=== PATIENT | male | born 1960 | race Caucasian/White ===

== ENCOUNTER 2020-06-20 07:56 | Outpatient (REF) | payer OTHER, SELFPAY ==
[2020-06-20 09:06] LABS: Alanine Aminotransferase 20 U/L (0-40); Albumin Level 4.2 g/dL (3.5-5.0); Alkaline Phosphatase 71 U/L (39-117); Anion Gap 16 (12-20); Aspartate Amino Transferase 24 U/L (5-37); Bilirubin Total 0.5 mg/dL (0.0-1.0); Blood Urea Nitrogen 13 mg/dL (9-16); Calcium 8.8 mg/dL (8.4-10.2); Carbon Dioxide 24 mmol/L (22-29); Chloride 104 mmol/L (96-108); Cholesterol 182 mg/dL; Estimated Glomerular Filt Rate > 60; Glucose Fasting 131 mg/dL (60-99); HDL Cholesterol 54 mg/dL; LDL Cholesterol Calculated 95 mg/dl; Potassium 4.5 mmol/L (3.3-5.1); Sodium 139 mmol/L (135-145); Total Protein 7.9 g/dL (6.5-8.0); Triglycerides 167 mg/dL
[2020-06-20 10:30] LABS: Estimated Average Glucose 128 mg/dL; Hemoglobin A1c % 6.1 %
== END 2020-06-20 07:57 | disposition home or self-care (01) ==
LOC: HO.LAB 07:56
PROVIDERS: PCP Internal Medicine; Visit Provider Internal Medicine
DX: Z00.00 Encounter for general adult medical examination without abnormal findings (principal); R73.9 Hyperglycemia, unspecified; I10 Essential (primary) hypertension; E78.5 Hyperlipidemia, unspecified
CPT/HCPCS: 36415; 80053; 80061; 83036

== ENCOUNTER 2020-07-08 06:04 | Outpatient (REF) | payer OTHER, SELFPAY ==
[2020-07-08 11:43] LABS: Hematocrit 44.8 % (42-52); Hemoglobin 14.6 g/dl (14.0-18.0); Mean Corpuscular HGB Conc 32.6 g/dl (31.0-36.0); Mean Corpuscular Hemoglobin 30.5 pg (27.0-33.0); Mean Corpuscular Volume 93.5 fL (80-98); Mean Platelet Volume 11.7 fL (9.4-12.4); Platelet Count 207 X10*3/uL (160-400); Red Blood Count 4.79 X10*6/uL (4.60-5.80); Red Cell Distribution Width 12.7 % (11.0-16.0); White Blood Count 6.8 X10*3/uL (4.8-10.8)
[2020-07-08 12:05] LABS: Estimated Average Glucose 134 mg/dL; Hemoglobin A1c % 6.3 %
[2020-07-08 12:23] LABS: Creatinine Urine 148.81 mg/dL
[2020-07-08 12:33] LABS: Alanine Aminotransferase 32 U/L (0-40); Albumin Level 4.2 g/dL (3.5-5.0); Alkaline Phosphatase 71 U/L (39-117); Anion Gap 13 (12-20); Aspartate Amino Transferase 30 U/L (5-37); Bilirubin Total 0.7 mg/dL (0.0-1.0); Blood Urea Nitrogen 16 mg/dL (9-16); Carbon Dioxide 24 mmol/L (22-29); Chloride 104 mmol/L (96-108); Cholesterol 181 mg/dL; Estimated Glomerular Filt Rate > 60; Glucose Fasting 118 mg/dL (60-99); HDL Cholesterol 50 mg/dL; LDL Cholesterol Calculated 103 mg/dl; Potassium 4.2 mmol/L (3.3-5.1); Sodium 137 mmol/L (135-145); Total Protein 7.8 g/dL (6.5-8.0); Triglycerides 142 mg/dL
[2020-07-08 13:10] LABS: Folate 9.3 ng/mL (> or = 4.0); Vitamin B12 351 pg/mL (200-900)
== END 2020-07-08 06:05 | disposition home or self-care (01) ==
LOC: HO.HMGCLDS 06:04
PROVIDERS: PCP Internal Medicine; Visit Provider Internal Medicine
DX: E78.5 Hyperlipidemia, unspecified (principal); R73.9 Hyperglycemia, unspecified; I10 Essential (primary) hypertension; G62.9 Polyneuropathy, unspecified; M54.30 Sciatica, unspecified side; I73.9 Peripheral vascular disease, unspecified
CPT/HCPCS: 36415; 80053; 80061; 82043; 82607; 82746; 83036; 85027

== ENCOUNTER 2020-07-09 16:01 | Outpatient (REF) | payer OTHER, SELFPAY ==
--- NOTE | ~2020-07-09 | XR_ITS ---
EXAMINATION: LUMBAR SPINE AND BILATERAL HIPS. CLINICAL INFORMATION: Polyneuropathy. COMPARISON: None TECHNIQUE: 3 views lumbar spine and 2 views each. FINDINGS: LUMBAR SPINE: There is mild straightening of lumbar lordosis. The vertebral heights and alignment is normal. There is loss of disc it virtually every disc level with vacuum disc phenomena. There is moderate spondylosis throughout lumbar spine. No acute fracture or lytic process seen. The paravertebral soft tissues are normal. RIGHT HIP: The right hip joint space is maintained normal. No bony erosive changes, loose bodies or fracture seen. The soft tissues are normal. LEFT HIP: The left hip joint space is maintained normal. No bony erosive changes, loose bodies or acute fracture seen. The soft tissues are normal. XR/XR hip RT min 2V IMPRESSION: Degenerative disc changes with spondylosis throughout lumbar spine. No visible acute fracture or dislocation seen. Unremarkable bilateral hip exam
--- NOTE | ~2020-07-09 | XR_ITS ---
EXAMINATION: LUMBAR SPINE AND BILATERAL HIPS. CLINICAL INFORMATION: Polyneuropathy. COMPARISON: None TECHNIQUE: 3 views lumbar spine and 2 views each. FINDINGS: LUMBAR SPINE: There is mild straightening of lumbar lordosis. The vertebral heights and alignment is normal. There is loss of disc it virtually every disc level with vacuum disc phenomena. There is moderate spondylosis throughout lumbar spine. No acute fracture or lytic process seen. The paravertebral soft tissues are normal. RIGHT HIP: The right hip joint space is maintained normal. No bony erosive changes, loose bodies or fracture seen. The soft tissues are normal. LEFT HIP: The left hip joint space is maintained normal. No bony erosive changes, loose bodies or acute fracture seen. The soft tissues are normal. XR/XR hip LT min 2V IMPRESSION: Degenerative disc changes with spondylosis throughout lumbar spine. No visible acute fracture or dislocation seen. Unremarkable bilateral hip exam
--- NOTE | ~2020-07-09 | XR_ITS ---
EXAMINATION: LUMBAR SPINE AND BILATERAL HIPS. CLINICAL INFORMATION: Polyneuropathy. COMPARISON: None TECHNIQUE: 3 views lumbar spine and 2 views each. FINDINGS: LUMBAR SPINE: There is mild straightening of lumbar lordosis. The vertebral heights and alignment is normal. There is loss of disc it virtually every disc level with vacuum disc phenomena. There is moderate spondylosis throughout lumbar spine. No acute fracture or lytic process seen. The paravertebral soft tissues are normal. RIGHT HIP: The right hip joint space is maintained normal. No bony erosive changes, loose bodies or fracture seen. The soft tissues are normal. LEFT HIP: The left hip joint space is maintained normal. No bony erosive changes, loose bodies or acute fracture seen. The soft tissues are normal. XR/XR lumbar spine 2-3V IMPRESSION: Degenerative disc changes with spondylosis throughout lumbar spine. No visible acute fracture or dislocation seen. Unremarkable bilateral hip exam
== END 2020-07-09 16:02 | disposition home or self-care (01) ==
LOC: HO.HMGCX 16:01
PROVIDERS: PCP Internal Medicine; Visit Provider Internal Medicine
DX: G62.9 Polyneuropathy, unspecified (principal); I73.9 Peripheral vascular disease, unspecified; M54.30 Sciatica, unspecified side
CPT/HCPCS: 72100; 73502

== ENCOUNTER 2020-08-17 14:09 | Outpatient (REF) | payer OTHER, SELFPAY ==
--- NOTE | ~2020-08-17 | US_ITS ---
EXAMINATION: RIGHT LOWER EXTREMITY DUPLEX CLINICAL INFORMATION: Peripheral vascular disease. TECHNIQUE: Real-time ultrasound and Doppler techniques (integrating B-mode 2-D vascular images, Doppler spectral analysis and color flow Doppler imaging) were utilized to interrogate the right lower extremities. COMPARISON: None FINDINGS: RIGHT LEG: Common femoral artery: 160 cm/s, Triphasic Superficial femoral artery (proximal): 1:30 cm/s, Triphasic Superficial femoral artery (mid): 138 cm/s, Triphasic Superficial femoral artery (distal): 86.8 cm/s, Triphasic Popliteal artery: 73.5 cm/s, Triphasic Posterior tibial artery: 89.1 cm/s, Triphasic US/US arterial duplex LE RT IMPRESSION: No evidence of a right lower extremity hemodynamically significant stenosis.
== END 2020-08-17 14:10 | disposition home or self-care (01) ==
LOC: HO.US 14:09
PROVIDERS: Visit Provider Internal Medicine
DX: I73.9 Peripheral vascular disease, unspecified (principal)
CPT/HCPCS: 93926

== ENCOUNTER 2020-12-19 08:32 | Outpatient (REF) | payer OTHER, SELFPAY ==
[2020-12-19 09:42] LABS: Creatinine Urine 61.14 mg/dL; Microalbumin Urine < 5.0 mg/L
[2020-12-19 09:43] LABS: Alanine Aminotransferase 36 U/L (0-40); Albumin Level 4.4 g/dL (3.5-5.0); Alkaline Phosphatase 70 U/L (39-117); Anion Gap 12 (12-20); Aspartate Amino Transferase 37 U/L (5-37); Bilirubin Total 0.8 mg/dL (0.0-1.0); Blood Urea Nitrogen 13 mg/dL (9-16); Calcium 9.3 mg/dL (8.4-10.2); Carbon Dioxide 27 mmol/L (22-29); Chloride 104 mmol/L (96-108); Cholesterol 163 mg/dL; Estimated Glomerular Filt Rate > 60; Glucose Fasting 121 mg/dL (60-99); HDL Cholesterol 45 mg/dL; LDL Cholesterol Calculated 97 mg/dl; Sodium 138 mmol/L (135-145); Total Protein 7.9 g/dL (6.5-8.0); Triglycerides 105 mg/dL
[2020-12-19 09:44] LABS: Estimated Average Glucose 134 mg/dL; Hemoglobin A1c % 6.3 %
== END 2020-12-19 08:33 | disposition home or self-care (01) ==
LOC: HO.LAB 08:32
PROVIDERS: PCP Internal Medicine; Visit Provider Internal Medicine
DX: R73.9 Hyperglycemia, unspecified (principal); I10 Essential (primary) hypertension; E78.5 Hyperlipidemia, unspecified
CPT/HCPCS: 36415; 80053; 80061; 82043; 83036

== ENCOUNTER 2021-04-17 08:56 | Outpatient (REF) | payer OTHER, SELFPAY ==
[2021-04-17 09:52] LABS: Alanine Aminotransferase 29 U/L (0-40); Albumin Level 4.2 g/dL (3.5-5.0); Alkaline Phosphatase 68 U/L (39-117); Anion Gap 12 (12-20); Aspartate Amino Transferase 32 U/L (5-37); Bilirubin Total 0.8 mg/dL (0.0-1.0); Blood Urea Nitrogen 12 mg/dL (9-16); Calcium 9.3 mg/dL (8.4-10.2); Carbon Dioxide 28 mmol/L (22-29); Chloride 104 mmol/L (96-108); Cholesterol 160 mg/dL; Estimated Glomerular Filt Rate > 60; Glucose Fasting 126 mg/dL (60-99); HDL Cholesterol 46 mg/dL; LDL Cholesterol Calculated 95 mg/dl; Potassium 4.8 mmol/L (3.3-5.1); Sodium 139 mmol/L (135-145); Total Protein 7.7 g/dL (6.5-8.0); Triglycerides 96 mg/dL
[2021-04-17 10:12] LABS: Estimated Average Glucose 134 mg/dL; Hemoglobin A1c % 6.3 %
[2021-04-17 10:15] LABS: Creatinine Urine 146.41 mg/dL; Microalbum/Creatinine Ratio Ur 12.2 ug/mg cr
== END 2021-04-17 08:57 | disposition home or self-care (01) ==
LOC: HO.LAB 08:56
PROVIDERS: PCP Internal Medicine; Visit Provider Internal Medicine
DX: E78.5 Hyperlipidemia, unspecified (principal); I10 Essential (primary) hypertension; R73.9 Hyperglycemia, unspecified
CPT/HCPCS: 36415; 80053; 80061; 82043; 83036

== ENCOUNTER 2021-09-18 08:03 | Outpatient (REF) | payer OTHER, SELFPAY ==
[2021-09-18 09:26] LABS: Prostate Specific Antigen 1.24 ng/mL (<0.05-4.0)
== END 2021-09-18 08:04 | disposition home or self-care (01) ==
LOC: HO.LAB 08:03
PROVIDERS: PCP Internal Medicine; Visit Provider Urology
DX: Z12.5 Encounter for screening for malignant neoplasm of prostate (principal); N40.0 Benign prostatic hyperplasia without lower urinary tract symptoms
CPT/HCPCS: 36415; 84153

== ENCOUNTER 2021-12-25 08:01 | Outpatient (REF) | payer OTHER, SELFPAY ==
[2021-12-25 08:52] LABS: Estimated Average Glucose 137 mg/dL; Hemoglobin A1c % 6.4 %
[2021-12-25 09:14] LABS: Alanine Aminotransferase 43 U/L (0-40); Albumin Level 4.3 g/dL (3.5-5.0); Alkaline Phosphatase 61 U/L (39-117); Anion Gap 16 (12-20); Aspartate Amino Transferase 45 U/L (5-37); Bilirubin Total 0.6 mg/dL (0.0-1.0); Blood Urea Nitrogen 14 mg/dL (9-16); Calcium 8.7 mg/dL (8.4-10.2); Carbon Dioxide 25 mmol/L (22-29); Chloride 104 mmol/L (96-108); Cholesterol 173 mg/dL; Estimated Glomerular Filt Rate > 60; Glucose Fasting 125 mg/dL (60-99); HDL Cholesterol 52 mg/dL; LDL Cholesterol Calculated 102 mg/dl; Potassium 4.5 mmol/L (3.3-5.1); Sodium 140 mmol/L (135-145); Total Protein 7.7 g/dL (6.5-8.0); Triglycerides 96 mg/dL
[2021-12-25 09:38] LABS: Creatinine Urine 79.07 mg/dL; Microalbum/Creatinine Ratio Ur 6.3 ug/mg cr
== END 2021-12-25 08:02 | disposition home or self-care (01) ==
LOC: HO.LAB 08:01
PROVIDERS: PCP Internal Medicine; Visit Provider Internal Medicine
DX: E11.9 Type 2 diabetes mellitus without complications (principal); E78.5 Hyperlipidemia, unspecified; I10 Essential (primary) hypertension
CPT/HCPCS: 36415; 80053; 80061; 82043; 83036

== ENCOUNTER → 2022-01-10 07:55 | Outpatient (REF) | payer OTHER, SELFPAY ==
--- NOTE | 2022-01-10 08:00 | CA_ITS ---
Acquisition Time: 2022-01-10 08:17:52 Total Exercise Time: 00:05:43 Test Indications: CP, SOB Medications: SEE CHART Protocol: EUGENIO Max HR: 139 BPM 87% of Pred: 159 BPM Max BP: 190/076 mmHG Max Work Load: 7.0 METS Exercise stress test with exercise 5 min 43 sec of Eugenio protocol, achieving 86% MPHR, with moderate sob, no chest discomfort, without arrythmia, with normotensive response to exercise, without EKG changes meeting criteria for ischemia. In recovery his breathing normalized. Test reviewed with Dr Liu. Referred By: Nighat Parson Overread By: LINDA MAE
== END ==
LOC: HO.CARD 07:55
PROVIDERS: PCP Internal Medicine; Visit Provider Internal Medicine
DX: I20.9 Angina pectoris, unspecified (principal)
CPT/HCPCS: 93017

== ENCOUNTER 2022-09-29 08:16 | Outpatient (AMB) | payer OTHER, SELFPAY ==
[2022-09-29 08:34] VITALS: BP 158/80; PULSE 76; TEMP 36.8; O2SAT 94; BMI 38.1
--- NOTE | 2022-09-29 08:34 | MHC.OFFWIV ---
Intake Vital Signs 09/29/22 08:34 Height 6 ft 2 in Weight 296 lb 8 oz BMI 38.1 BP 158/80 H Blood Pressure Location Rt brachial Position Sitting Pulse 76 Pulse Source Pulse Oximeter Temp 98.2 F Temp Source Oral Pulse Oximetry (%) 94 Oxygen Delivery Method Room Air Intake Visit Reasons: EP, Bilateral ear pain Intake Note: Pt is here today for both ears blocked, states been discomfort for 2 wks. Patient Tobacco Use Status: Former Tobacco user Allergies No Known Allergies [No Known Allergies*] Allergy (Verified 09/29/22 08:34) Do you need a note to return to daycare/school/sports/work: No HPI HPI Comments History of Present Illness Details The patient presents to urgent care for evaluation of cerumen impaction bilaterally with the left being worse than right. Decreased hearing [facility] [place] Medical History Annual physical exam BPH (benign prostatic hyperplasia) Claudication of right lower extremity DJD (degenerative joint disease), lumbar DM type 2 (diabetes mellitus, type 2) HTN (hypertension) Hyperglycemia Hyperlipemia Microscopic hematuria Osteoarthritis Sciatica Surgical History H/O colonoscopy History of arthroscopic knee surgery Family History Father No problems noted. Mother No problems noted. Social History Housing: House Alcohol intake: current Alcohol intake frequency: a few times a month Patient Tobacco Use Status: Former Tobacco user Years Smoked: 38 yrs e-Cigarette/Vaping Use: Never Used Current occupational status: employed Cognitive needs: No Hearing needs: No Vision needs: Yes Review of Systems Const Denies headache(s) Eyes Denies change in vision, Denies dry eyes, Denies floaters, Denies irritation, Reports itchy eyes and Denies eye pain ENT Reports no additional complaints and Denies headache(s) Card Reports no additional complaints Musc Denies numbness Skin/Breast Denies skin pain, Denies skin swelling and Denies unusual bruising Neuro Denies headache(s), Denies focal weakness and Denies numbness Aller/Immun Reports itchy eyes Physical Exam Vital Signs: Last Vital Signs Temp 98.2 F 09/29/22 08:34 Pulse 76 09/29/22 08:34 BP 158/80 H 09/29/22 08:34 Pulse Ox 94 09/29/22 08:34 Oxygen Delivery Method Room Air 09/29/22 08:34 BMI result Body Mass Index 38.1 Const General: healthy appearing and no acute distress Orientation/consciousness: patient oriented x3 HEENT Other: Bilateral cerumen impaction Eyes Eyelids: Yes eyelids normal Conjunctivae: conjunctivae normal EOM: EOMs intact bilaterally Neuro General: patient oriented x3 Assessment & Plan Assessment & Plan (1) Impacted cerumen of both ears: Code(s): H61.23 - Impacted cerumen, bilateral Plan The patient presents for evaluation of decreased hearing and cerumen impaction. Hydrogen peroxide was instilled in the ear and the bilateral ear was subsequently irrigated with warm water. The impaction was removed well. Patient tolerated the procedure well. Hearing is improved. There is no infection noted. TMs intact and normal. The patient will follow up with her PCP or return as needed. Coding Level of Care Code Est Pt Level 3 (17982) Diagnoses Impacted cerumen of both ears H61.23
== END 2022-09-29 09:55 | disposition home or self-care (01) ==
PROVIDERS: PCP Internal Medicine; Visit Provider Emergency Medicine
DX: H61.23 Impacted cerumen, bilateral (principal)
CPT/HCPCS: 99213

== ENCOUNTER 2022-12-22 08:04 | Outpatient (REF) | payer OTHER, SELFPAY ==
[2022-12-22 09:41] LABS: Prostate Specific Antigen 1.09 ng/mL (<0.05-4.0)
== END 2022-12-22 08:05 | disposition home or self-care (01) ==
LOC: HO.LAB 08:04
PROVIDERS: PCP Internal Medicine; Visit Provider Urology
DX: Z12.5 Encounter for screening for malignant neoplasm of prostate (principal); N40.0 Benign prostatic hyperplasia without lower urinary tract symptoms
CPT/HCPCS: 36415; 84153

== ENCOUNTER 2023-03-24 12:56 | Outpatient (AMB) | payer OTHER, SELFPAY ==
--- NOTE | 2023-03-24 13:17 | A.OFFPC_ITS ---
Vital Signs 03/24/23 13:18 Height 6 ft 2 in Weight 288 lb BMI 37.0 BP 140/78 H Blood Pressure Location Lt brachial Position Sitting Pulse 85 Pulse Source Pulse Oximeter Pulse Oximetry (%) 96 Oxygen Delivery Method Room Air Intake Visit Reasons: Physical Exam Intake Note: Pt is here today for PE. Allergies No Known Allergies [No Known Allergies*] Allergy (Verified 03/24/23 13:22) Medication List - Last Reconciled 03/24/23 by Nighat Parson MD aspirin 81 mg PO DAILY irbesartan 300 mg PO DAILY metformin 850 mg PO BID metoprolol tartrate 50 mg PO DAILY rosuvastatin (Crestor) 20 mg PO DAILY simvastatin 40 mg PO BEDTIME Tobacco use date assessed: 03/24/23 Dental Screening Dental Screen Date: 03/24/23 Did you have a dental visit in the last 12 months?: Yes Did you have a dental problem in the last 6 months where you did not have access to dental care?: No Was dental information given to patient?: Patient has dentist HPI Physical Exam HPI Details Patient presents for physical. [facility]LY [facility] Medical History (Updated 03/24/23 @ 15:17 by Nighat Parson MD) DM type 2 (diabetes mellitus, type 2) Sciatica Annual physical exam Hyperlipemia Hyperglycemia DJD (degenerative joint disease), lumbar Microscopic hematuria BPH (benign prostatic hyperplasia) Osteoarthritis HTN (hypertension) Surgical History H/O colonoscopy History of arthroscopic knee surgery Family History Father No problems noted. Mother No problems noted. Social History Housing: House Alcohol intake: current Alcohol intake frequency: a few times a month Patient Tobacco Use Status: Former Tobacco user Years Smoked: 38 yrs e-Cigarette/Vaping Use: Never Used Current occupational status: employed Cognitive needs: No Hearing needs: No Vision needs: Yes Questionnaire PHQ-9 Over the last 2 weeks, how often have you been bothered by any of the following problems? 1. Little interest or pleasure in doing things: not at all 2. Feeling down, depressed, or hopeless: not at all 3. Trouble falling or staying asleep, or sleeping too much: not at all 4. Feeling tired or having little energy: not at all 5. Poor appetite or overeating: not at all 6. Feeling bad about yourself - or that you are a failure or have let yourself or your family down: not at all 7. Trouble concentrating on things, such as reading the newspaper or watching television: not at all 8. Moving or speaking so slowly that other people could have noticed. Or the opposite - being so fidgety or restless that you have been moving around a lot more than usual: not at all 9. Thoughts that you would be better off or of hurting yourself in some way: not at all Total score: 0 Depression Screening Interpretation: Negative Depression Screening Done: Yes Source: Developed by Drs. Cristino Paz, Camille Vasquez, Andrade Hicks and colleagues, with an educational flores from [employer]. Thrive Questionnaire Date Thrive assessed: 03/24/23 I am a: Patient What is your living situation today?: I have a steady place to live Within the past 12 months, did the food you bought not last and you didn't have the money to get more?: Never true Within the past 12 months, did you worry whether your food would run out before you got money to buy more?: Never true Do you have trouble paying for medicines?: No Do you have trouble getting transportation to medical appointments?: No Do you have trouble paying your heating and electricity bill?: No Do you have trouble taking care of your child, family member or friend?: No Do you have trouble with day-to-day activities such as bathing, preparing meals, shopping, managing finances, etc.?: No Are you currently unemployed and looking for a job?: No Are you interested in more education?: No Please select the resources that you would like help with: None Currently or been in a relationship where the following occur: no concerns reported THRIVE Score: 0 AUDIT C Alcohol Use Questionnaire (AUDIT-C) 1. How often do you have a drink containing alcohol?: Monthly or less 2. How many drinks containing alcohol do you have on a typical day when you are drinking?: 1 or 2 3. How often do you have six or more drinks on one occasion?: Never Total Score: 1 LONG-7 AMB Questionnaire LONG-7 Date LONG - 7 assessed: 03/24/23 Feeling nervous, anxious, or on edge: 0 = Not at all Not being able to stop or control worryin = Not at all Worrying too much about different things: 0 = Not at all Trouble relaxin = Not at all Being so restless that it is hard to sit still: 0 = Not at all Becoming easily annoyed or irritable: 0 = Not at all Feeling afraid as if something awful might happen: 0 = Not at all Total LONG-7 score (0-4 normal; 5-9 mild; 10-14 moderate; 15-21 severe): 0 Source: Developed by Drs. Cristino Paz, Camille Vasquez, Andrade Hicks and colleagues, with an educational flores from [employer]. Review of Systems Const All systems reviewed & are unremarkable except as noted in HPI and below Reports no additional complaints Eyes Reports no additional complaints ENT Reports no additional complaints Card Reports no additional complaints Resp Reports no additional complaints GI Reports no additional complaints Physical exam (Primary Care) Vital Signs: Last Vital Signs Pulse 85 03/24/23 13:18 BP 140/78 H 03/24/23 13:18 Pulse Ox 96 03/24/23 13:18 Oxygen Delivery Method Room Air 03/24/23 13:18 BMI result Body Mass Index 37.0 Tobacco/Smoking Status: Tobacco use Status Tobacco use date assessed 03/24/23 03/24/23 13:27 Patient Tobacco Use Status Former Tobacco user 03/24/23 13:27 e-Cigarette/Vaping Use Never Used 03/24/23 13:27 PHQ-9: PHQ-9 Score PHQ-9: Total score 0 03/24/23 13:27 Depression Screening Interpretation: Negative Thrive Assessment: Date of Thrive Assessment Date Thrive assessed 03/24/23 03/24/23 13:27 Currently or been in a relationship where the following occur: no concerns rep orted Const General: no acute distress HENMT Head: Yes normal to inspection Ears: hearing grossly normal bilaterally Mouth: Normal oral and palatal mucosa present Eyes General: appearance normal, both eyes and all related structures Neck Neck: Yes no lymphadenopathy and Yes supple Resp Effort & Inspection: normal respiratory effort Auscultation: clear to auscultation bilaterally Cardio Rhythm: regular rhythm Heart sounds: S1 normal heart sound present and S2 normal heart sound present GI Inspection: Yes normal to inspection Palpation (GI): Soft to palpation Percussion: Yes normal to percussion Auscultation: normal bowel sounds Assessment and Plan Assessment & Plan (1) DM type 2 (diabetes mellitus, type 2): Code(s): E11.9 - Type 2 diabetes mellitus without complications Plan: ADA diet increase regular exercise weight loss discussed with the patient he will return for fasting blood work and follow-up in 3 months with a fasting labs before (2) HTN (hypertension): Code(s): I10 - Essential (primary) hypertension Plan: Continue irbesartan and metoprolol (3) Hyperlipemia: Code(s): E78.5 - Hyperlipidemia, unspecified Plan: Continue crestor (4) Annual physical exam: Code(s): Z00.00 - Encounter for general adult medical examination without abnormal findin gs Plan: Well-balanced diet regular physical activity weight loss discussed with the patient (5) H/O colonoscopy: Comment: 11/2016 Code(s): Z98.890 - Other specified postprocedural states Orders: Orders Complete Blood Count Auto Diff Today E11.9 - Type 2 diabetes mellitus without complications, E78.5 - Hyperlipidemia, unspecified, I10 - Essential (primary) hypertension Hemoglobin A1c Today E11.9 - Type 2 diabetes mellitus without complications, E78.5 - Hyperlipidemia, unspecified, I10 - Essential (primary) hypertension Lipid Panel Today E11.9 - Type 2 diabetes mellitus without complications, E78.5 - Hyperlipidemia, unspecified, I10 - Essential (primary) hypertension Comprehensive [place]. Panel Fast Today E11.9 - Type 2 diabetes mellitus without complications, E78.5 - Hyperlipidemia, unspecified, I10 - Essential (primary) hypertension Microalbumin, Random (w Creat) Today E11.9 - Type 2 diabetes mellitus without complications, E78.5 - Hyperlipidemia, unspecified, I10 - Essential (primary) hypertension Medications: Discontinued simvastatin Discontinued Reason: Doctor's Order 40 mg PO BEDTIME 90 tabs 3RF Coding Level of Care Code Est Pt Prev Care 40-64y(26753) Diagnoses DM type 2 (diabetes mellitus, type 2) E11.9 HTN (hypertension) I10 Hyperlipemia E78.5 Annual physical exam Z00.00 H/O colonoscopy Z98.890
[2023-03-24 13:18] VITALS: BP 140/78; PULSE 85; O2SAT 96; BMI 37.0
== END 2023-03-24 15:18 | disposition home or self-care (01) ==
PROVIDERS: PCP Internal Medicine; Visit Provider Internal Medicine
DX: E11.9 Type 2 diabetes mellitus without complications (principal); I10 Essential (primary) hypertension; E78.5 Hyperlipidemia, unspecified; Z00.00 Encounter for general adult medical examination without abnormal findings; Z98.890 Other specified postprocedural states
CPT/HCPCS: 99396

== ENCOUNTER 2023-04-01 08:41 | Outpatient (REF) | payer OTHER, SELFPAY ==
[2023-04-01 11:00] LABS: MANUAL DIFF FLAG NO
[2023-04-01 11:03] LABS: Basophils Percent Auto 0.6 % (0-2); Eosinophils Absolute Auto 0.3 X10*3/uL (0.0-0.4); Eosinophils Percent Auto 5.1 % (0-4); Hematocrit 44.9 % (42.0-52.0); Hemoglobin 15.2 g/dl (14.0-18.0); Imm Gran Abs Auto 0.02 X10*3/uL (0.00-0.03); Imm Gran Pct Auto 0.3 % (0.0-0.4); Lymphocytes Absolute Auto 2.2 X10*3/uL (1.2-4.9); Lymphocytes Percent Auto 35.3 % (20-40); Mean Corpuscular HGB Conc 33.9 g/dl (31.0-36.0); Mean Corpuscular Hemoglobin 30.1 pg (27.0-33.0); Mean Corpuscular Volume 88.9 fL (80.0-98.0); Mean Platelet Volume 11.3 fL (9.4-12.4); Monocytes Absolute Auto 0.5 X10*3/uL (0.1-1.2); Monocytes Percent Auto 7.9 % (2-11); Neutrophils Absolute Auto 3.2 x10*3/uL (2.0-8.3); Neutrophils Percent Auto 50.8 % (45-73); Platelet Count 172 X10*3/uL (160-400); Red Blood Count 5.05 X10*6/uL (4.60-5.80); Red Cell Distribution Width 12.3 % (11.0-16.0); White Blood Count 6.3 X10*3/uL (4.8-10.8)
[2023-04-01 11:09] LABS: Estimated Average Glucose 137 mg/dL; Hemoglobin A1c % 6.4 % (<6.0)
[2023-04-01 11:24] LABS: Alanine Aminotransferase 33 U/L (0-40); Albumin Level 4.2 g/dL (3.5-5.0); Alkaline Phosphatase 58 U/L (39-117); Anion Gap 12 (12-20); Aspartate Amino Transferase 36 U/L (5-37); Bilirubin Total 0.6 mg/dL (0.0-1.0); Blood Urea Nitrogen 11 mg/dL (9-16); Calcium 9.4 mg/dL (8.4-10.2); Carbon Dioxide 26 mmol/L (22-29); Chloride 103 mmol/L (96-108); Cholesterol 115 mg/dL (<200); Estimated Glomerular Filt Rate > 60; Glucose Fasting 129 mg/dL (60-99); HDL Cholesterol 44 mg/dL (>40); LDL Cholesterol Calculated 53 mg/dL (<100); Potassium 3.9 mmol/L (3.3-5.1); Sodium 137 mmol/L (135-145); Total Protein 7.9 g/dL (6.5-8.0); Triglycerides 93 mg/dL (<150)
[2023-04-01 11:57] LABS: Creatinine Urine 88.31 mg/dL
== END 2023-04-01 08:42 | disposition home or self-care (01) ==
LOC: HO.HMGCLDS 08:41
PROVIDERS: PCP Internal Medicine; Visit Provider Internal Medicine
DX: E11.9 Type 2 diabetes mellitus without complications (principal); E78.5 Hyperlipidemia, unspecified; I10 Essential (primary) hypertension
CPT/HCPCS: 36415; 80053; 80061; 82043; 82570; 83036; 85025

== ENCOUNTER 2023-06-24 09:03 | Outpatient (REF) | payer OTHER, SELFPAY ==
[2023-06-24 11:33] LABS: Estimated Average Glucose 137 mg/dL; Hemoglobin A1c % 6.4 % (<6.0)
[2023-06-24 11:57] LABS: Alanine Aminotransferase 29 U/L (0-40); Albumin Level 4.2 g/dL (3.5-5.0); Alkaline Phosphatase 54 U/L (39-117); Anion Gap 14 (12-20); Aspartate Amino Transferase 36 U/L (5-37); Bilirubin Total 0.3 mg/dL (0.0-1.0); Blood Urea Nitrogen 11 mg/dL (9-16); Calcium 9.6 mg/dL (8.4-10.2); Carbon Dioxide 27 mmol/L (22-29); Chloride 105 mmol/L (96-108); Cholesterol 114 mg/dL (<200); Estimated Glomerular Filt Rate > 60; Glucose Fasting 111 mg/dL (60-99); HDL Cholesterol 42 mg/dL (>40); LDL Cholesterol Calculated 55 mg/dL (<100); Potassium 4.9 mmol/L (3.3-5.1); Sodium 141 mmol/L (135-145); Total Protein 7.9 g/dL (6.5-8.0); Triglycerides 89 mg/dL (<150)
== END 2023-06-24 09:04 | disposition home or self-care (01) ==
LOC: HO.HMGCLDS 09:03
PROVIDERS: PCP Internal Medicine; Visit Provider Internal Medicine
DX: E11.9 Type 2 diabetes mellitus without complications (principal); E78.5 Hyperlipidemia, unspecified; I10 Essential (primary) hypertension
CPT/HCPCS: 36415; 80053; 80061; 83036

== ENCOUNTER 2023-06-26 13:59 | Outpatient (AMB) | payer OTHER, SELFPAY ==
[2023-06-26 14:23] VITALS: BP 124/68; PULSE 76; O2SAT 95; BMI 35.9
--- NOTE | 2023-06-26 14:23 | A.OFFPC_ITS ---
Vital Signs 06/26/23 14:23 Height 6 ft 2 in Weight 280 lb BMI 35.9 BP 124/68 Blood Pressure Location Rt brachial Position Sitting Pulse 76 Pulse Source Pulse Oximeter Pulse Oximetry (%) 95 Oxygen Delivery Method Room Air Intake Visit Reasons: 3 Month follow up Intake Note: Pt is here today for 3 months follow up visit on labs. Allergies No Known Allergies [No Known Allergies*] Allergy (Verified 06/26/23 14:29) Medication List - Last Reconciled 06/26/23 by Nighat Parson MD aspirin 81 mg PO DAILY irbesartan 300 mg PO DAILY metformin 850 mg PO BID metoprolol tartrate 50 mg PO DAILY rosuvastatin (Crestor) 20 mg PO DAILY Tobacco use date assessed: 06/26/23 Dental Screening Dental Screen Date: 03/24/23 HPI 3 Month follow up HPI Details Patient presents for the follow-up of hypertension type 2 diabetes hyperlipidemia. He had an episode of pain and tingling sensation in the left 2nd and 3rd finger last month but resolved after NSAIDs for 1 week. 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 [facility]LY [facility] Medical History DM type 2 (diabetes mellitus, type 2) Sciatica Annual physical exam Hyperlipemia Hyperglycemia DJD (degenerative joint disease), lumbar Microscopic hematuria BPH (benign prostatic hyperplasia) Osteoarthritis HTN (hypertension) Surgical History H/O colonoscopy History of arthroscopic knee surgery Family History Father No problems noted. Mother No problems noted. Social History Housing: House Alcohol intake: current Alcohol intake frequency: a few times a month Patient Tobacco Use Status: Former Tobacco user Years Smoked: 38 yrs e-Cigarette/Vaping Use: Never Used service: No Current occupational status: employed Cognitive needs: No Hearing needs: No Vision needs: Yes Questionnaire Thrive Questionnaire Date Thrive assessed: 03/24/23 LONG-7 AMB Questionnaire LONG-7 Date LONG - 7 assessed: 03/24/23 Source: Developed by Drs. Cristino Paz, Camille B.W. Andrade Vasquez and colleagues, with an educational flores from [employer]. Review of Systems Const All systems reviewed & are unremarkable except as noted in HPI and below ENT Reports no additional complaints Card Reports no additional complaints Resp Reports no additional complaints GI Reports no additional complaints Reports no additional complaints Physical exam (Primary Care) Vital Signs: Last Vital Signs Pulse 76 06/26/23 14:23 BP 124/68 06/26/23 14:23 Pulse Ox 95 06/26/23 14:23 Oxygen Delivery Method Room Air 06/26/23 14:23 BMI result Body Mass Index 35.9 Tobacco/Smoking Status: Tobacco use Status Tobacco use date assessed 06/26/23 06/26/23 14:29 Patient Tobacco Use Status Former Tobacco user 06/26/23 14:27 e-Cigarette/Vaping Use Never Used 06/26/23 14:27 Thrive Assessment: Date of Thrive Assessment Date Thrive assessed 03/24/23 06/26/23 14:27 HENMT Ears: hearing grossly normal bilaterally Chest Chest palpation & inspection: normal inspection of the chest Resp Effort & Inspection: normal respiratory effort Auscultation: clear to auscultation bilaterally Cardio Rhythm: regular rhythm Heart sounds: S1 normal heart sound present and S2 normal heart sound present GI Inspection: Yes normal to inspection Palpation (GI): Soft to palpation Percussion: Yes normal to percussion Assessment and Plan Assessment & Plan (1) DM type 2 (diabetes mellitus, type 2): Code(s): E11.9 - Type 2 diabetes mellitus without complications Plan: A1c is 6.4, ADA diet increase exercise weight loss discussed with the patient continue metformin follow-up in 4 months (2) HTN (hypertension): Code(s): I10 - Essential (primary) hypertension Plan: Continue current medications (3) Hyperlipemia: Code(s): E78.5 - Hyperlipidemia, unspecified Plan: Continue statin Orders: Orders Comprehensive [place]. Panel Fast 4 Months E11.9 - Type 2 diabetes mellitus without complications, E78.5 - Hyperlipidemia, unspecified, I10 - Essential (primary) hypertension Hemoglobin A1c 4 Months E11.9 - Type 2 diabetes mellitus without complications, E78.5 - Hyperlipidemia, unspecified, I10 - Essential (primary) hypertension Complete Blood Count Auto Diff 4 Months E11.9 - Type 2 diabetes mellitus without complications, E78.5 - Hyperlipidemia, unspecified, I10 - Essential (primary) hypertension Coding Level of Care Code Est Pt Level 4 (96649) Diagnoses DM type 2 (diabetes mellitus, type 2) E11.9 HTN (hypertension) I10 Hyperlipemia E78.5
== END 2023-06-26 14:45 | disposition home or self-care (01) ==
PROVIDERS: PCP Internal Medicine; Visit Provider Internal Medicine
DX: E11.9 Type 2 diabetes mellitus without complications (principal); I10 Essential (primary) hypertension; E78.5 Hyperlipidemia, unspecified
CPT/HCPCS: 99214

== ENCOUNTER 2023-11-18 09:42 | Outpatient (REF) | payer OTHER, SELFPAY ==
[2023-11-18 09:55] LABS: MANUAL DIFF FLAG NO
[2023-11-18 10:14] LABS: Basophils Absolute Auto 0.1 X10*3/uL (0.0-0.2); Basophils Percent Auto 0.6 % (0-2); Eosinophils Absolute Auto 0.3 X10*3/uL (0.0-0.4); Eosinophils Percent Auto 4.4 % (0-4); Hematocrit 43.4 % (42.0-52.0); Imm Gran Abs Auto 0.01 X10*3/uL (0.00-0.03); Imm Gran Pct Auto 0.1 % (0.0-0.4); Lymphocytes Absolute Auto 2.5 X10*3/uL (1.2-4.9); Lymphocytes Percent Auto 32.8 % (20-40); Mean Corpuscular HGB Conc 34.6 g/dl (31.0-36.0); Mean Corpuscular Volume 89.7 fL (80.0-98.0); Mean Platelet Volume 10.7 fL (9.4-12.4); Monocytes Absolute Auto 0.6 X10*3/uL (0.1-1.2); Monocytes Percent Auto 8.3 % (2-11); Neutrophils Absolute Auto 4.2 x10*3/uL (2.0-8.3); Neutrophils Percent Auto 53.8 % (45-73); Platelet Count 176 X10*3/uL (160-400); Red Blood Count 4.84 X10*6/uL (4.60-5.80); Red Cell Distribution Width 12.2 % (11.0-16.0); White Blood Count 7.7 X10*3/uL (4.8-10.8)
[2023-11-18 10:21] LABS: Estimated Average Glucose 134 mg/dL; Hemoglobin A1c % 6.3 % (<6.0)
[2023-11-18 10:34] LABS: Alanine Aminotransferase 17 U/L (0-40); Albumin Level 4.4 g/dL (3.5-5.0); Alkaline Phosphatase 53 U/L (39-117); Anion Gap 11 (12-20); Aspartate Amino Transferase 23 U/L (5-37); Bilirubin Total 0.7 mg/dL (0.0-1.0); Blood Urea Nitrogen 13 mg/dL (9-16); Calcium 9.5 mg/dL (8.4-10.2); Carbon Dioxide 25 mmol/L (22-29); Chloride 106 mmol/L (96-108); Cholesterol 139 mg/dL (<200); Estimated Glomerular Filt Rate > 60; Glucose Fasting 121 mg/dL (60-99); HDL Cholesterol 52 mg/dL (>40); LDL Cholesterol Calculated 68 mg/dL (<100); Potassium 4.1 mmol/L (3.3-5.1); Sodium 138 mmol/L (135-145); Total Protein 7.9 g/dL (6.5-8.0); Triglycerides 99 mg/dL (<150)
[2023-11-18 10:42] LABS: Creatinine Urine 108.83 mg/dL; Microalbum/Creatinine Ratio Ur 7.3 ug/mg cr (<30)
[2023-11-18 10:49] LABS: PSA,Total (Free>4and<10) 1.26 ng/mL (0.00-4.00)
== END 2023-11-18 09:43 | disposition home or self-care (01) ==
LOC: HO.LAB 09:42
PROVIDERS: PCP Internal Medicine; Visit Provider Internal Medicine
DX: Z00.00 Encounter for general adult medical examination without abnormal findings (principal); E78.5 Hyperlipidemia, unspecified; I10 Essential (primary) hypertension; E11.9 Type 2 diabetes mellitus without complications; Z12.5 Encounter for screening for malignant neoplasm of prostate
CPT/HCPCS: 36415; 80053; 80061; 82043; 82570; 83036; 84153; 85025

== ENCOUNTER 2023-11-24 12:23 | Outpatient (AMB) | payer OTHER, SELFPAY ==
--- NOTE | 2023-11-24 12:27 | A.OFFPC_ITS ---
Vital Signs 11/24/23 12:31 Height 6 ft 2 in Weight 287 lb BMI 36.8 BP 148/70 H Blood Pressure Location Lt brachial Position Sitting Pulse 75 Pulse Source Pulse Oximeter Pulse Oximetry (%) 97 Oxygen Delivery Method Room Air Intake Visit Reasons: 4 month follow up / medication Intake Note: Pt is here today for his 4mo. f/u/ medication Allergies No Known Allergies [No Known Allergies*] Allergy (Verified 11/24/23 12:28) Medication List - Last Reconciled 11/24/23 by Nighat Parson MD aspirin 81 mg PO DAILY irbesartan 300 mg PO DAILY metformin 850 mg PO BID metoprolol tartrate 50 mg PO DAILY rosuvastatin (Crestor) 20 mg PO DAILY Tobacco use date assessed: 11/24/23 Dental Screening Dental Screen Date: 11/24/23 Did you have a dental visit in the last 12 months?: No Did you have a dental problem in the last 6 months where you did not have access to dental care?: No Was dental information given to patient?: Patient has dentist HPI 4 month follow up / medication HPI Details Patient presents for the follow-up on hypertension hyperlipidemia type 2 diabetes. [facility] Medical History DM type 2 (diabetes mellitus, type 2) Sciatica Annual physical exam Hyperlipemia Hyperglycemia DJD (degenerative joint disease), lumbar Microscopic hematuria BPH (benign prostatic hyperplasia) Osteoarthritis HTN (hypertension) Surgical History H/O colonoscopy History of arthroscopic knee surgery Family History Father No problems noted. Mother No problems noted. Social History Housing: House Alcohol intake: current Alcohol intake frequency: a few times a month Patient Tobacco Use Status: Former Tobacco user Years Smoked: 38 yrs e-Cigarette/Vaping Use: Never Used service: No Current occupational status: employed Cognitive needs: No Hearing needs: No Vision needs: Yes Questionnaire PHQ-9 Over the last 2 weeks, how often have you been bothered by any of the following problems? 1. Little interest or pleasure in doing things: not at all 2. Feeling down, depressed, or hopeless: not at all 3. Trouble falling or staying asleep, or sleeping too much: not at all 4. Feeling tired or having little energy: not at all 5. Poor appetite or overeating: not at all 6. Feeling bad about yourself - or that you are a failure or have let yourself or your family down: not at all 7. Trouble concentrating on things, such as reading the newspaper or watching television: not at all 8. Moving or speaking so slowly that other people could have noticed. Or the opposite - being so fidgety or restless that you have been moving around a lot more than usual: not at all 9. Thoughts that you would be better off or of hurting yourself in some way: not at all Total score: 0 Depression Screening Interpretation: Negative Depression Screening Done: Yes 51881 - PHQ-9 Billing: Yes Source: Developed by Drs. Cristino Paz, Camille Vasquez, Andrade Hicks and colleagues, with an educational flores from [employer]. Thrive Questionnaire Date Thrive assessed: 03/24/23 LONG-7 AMB Questionnaire LONG-7 Date LONG - 7 assessed: 03/24/23 Source: Developed by Drs. Cristino Paz, Camille Vasquez, Andrade Hicks and colleagues, with an educational flores from [employer]. Review of Systems Const All systems reviewed & are unremarkable except as noted in HPI and below ENT Reports no additional complaints Card Reports no additional complaints Resp Reports no additional complaints GI Reports no additional complaints Reports no additional complaints Physical exam (Primary Care) Vital Signs: Last Vital Signs Pulse 75 11/24/23 12:31 BP 148/70 H 11/24/23 12:31 Pulse Ox 97 11/24/23 12:31 Oxygen Delivery Method Room Air 11/24/23 12:31 BMI result Body Mass Index 36.8 Tobacco/Smoking Status: Tobacco use Status Tobacco use date assessed 11/24/23 11/24/23 12:28 Patient Tobacco Use Status Former Tobacco user 11/24/23 12:28 e-Cigarette/Vaping Use Never Used 11/24/23 12:28 PHQ-9: PHQ-9 Score PHQ-9: Total score 0 11/24/23 13:22 Depression Screening Interpretation: Negative Thrive Assessment: Date of Thrive Assessment Date Thrive assessed 03/24/23 11/24/23 12:28 Const General: no acute distress HENMT Ears: hearing grossly normal bilaterally Neck Neck: Yes supple Resp Effort & Inspection: normal respiratory effort Auscultation: clear to auscultation bilaterally Cardio Rhythm: regular rhythm Heart sounds: S1 normal heart sound present and S2 normal heart sound present GI Inspection: Yes normal to inspection Palpation (GI): Soft to palpation Percussion: Yes normal to percussion Auscultation: normal bowel sounds Coding Level of Care Code Est Pt Level 4 (07715) Diagnoses DM type 2 (diabetes mellitus, type 2) E11.9 HTN (hypertension) I10 Hyperlipemia E78.5 Assessment & Plan Assessment & Plan (1) DM type 2 (diabetes mellitus, type 2): Comment: Not interested in trying GLP 1 agonist Code(s): E11.9 - Type 2 diabetes mellitus without complications Category: Medical Plan: A1c is 6.3. Continue metformin ADA diet increase exercise and weight loss. Patient is not interested in trying GLP 1 agonist (2) HTN (hypertension): Code(s): I10 - Essential (primary) hypertension Category: Medical Plan: Continue current medications (3) Hyperlipemia: Code(s): E78.5 - Hyperlipidemia, unspecified Category: Medical Plan: Continue statin Orders: Orders Hemoglobin A1c 4 Months E11.9 - Type 2 diabetes mellitus without complications, E78.5 - Hyperlipidemia, unspecified, I10 - Essential (primary) hypertension Comprehensive [place]. Panel Fast 4 Months E11.9 - Type 2 diabetes mellitus without complications, E78.5 - Hyperlipidemia, unspecified, I10 - Essential (primary) hypertension Lipid Panel 4 Months E11.9 - Type 2 diabetes mellitus without complications, E78.5 - Hyperlipidemia, unspecified, I10 - Essential (primary) hypertension Microalbumin, Random (w Creat) 4 Months E11.9 - Type 2 diabetes mellitus without complications, E78.5 - Hyperlipidemia, unspecified, I10 - Essential (primary) hypertension
[2023-11-24 12:31] VITALS: BP 148/70; PULSE 75; O2SAT 97; BMI 36.8
== END 2023-11-24 13:57 | disposition home or self-care (01) ==
PROVIDERS: PCP Internal Medicine; Visit Provider Internal Medicine
DX: E11.9 Type 2 diabetes mellitus without complications (principal); I10 Essential (primary) hypertension; E78.5 Hyperlipidemia, unspecified

== ENCOUNTER → 2023-11-24 12:23 | Outpatient (BNVA) | payer OTHER, SELFPAY | PROVIDERS: PCP Internal Medicine; Visit Provider Internal Medicine ==

== ENCOUNTER 2023-12-26 06:05 | Outpatient (REF) | payer OTHER, SELFPAY ==
[2023-12-26 08:34] LABS: Prostate Specific Antigen 1.47 ng/mL (<0.05-4.0)
== END 2023-12-26 06:06 | disposition home or self-care (01) ==
LOC: HO.LAB 06:05
PROVIDERS: PCP Internal Medicine; Visit Provider Urology
DX: N40.0 Benign prostatic hyperplasia without lower urinary tract symptoms (principal); Z12.5 Encounter for screening for malignant neoplasm of prostate
CPT/HCPCS: 36415; 84153

== ENCOUNTER 2024-04-13 10:05 | Outpatient (REF) | payer OTHER, SELFPAY ==
[2024-04-13 11:21] LABS: Estimated Average Glucose 137 mg/dL; Hemoglobin A1C 168.9112 umol/L; Hemoglobin A1c % 6.4 % (<6.0); Total Hemoglobin (HGBA1C) 3643.2753 umol/L
[2024-04-13 11:45] LABS: Creatinine Urine 183.91 mg/dL
[2024-04-13 12:02] LABS: Alanine Aminotransferase 19 U/L (0-40); Albumin Level 4.4 g/dL (3.5-5.0); Alkaline Phosphatase 57 U/L (39-117); Anion Gap 13 (12-20); Aspartate Amino Transferase 32 U/L (5-37); Bilirubin Total 0.4 mg/dL (0.0-1.0); Blood Urea Nitrogen 13 mg/dL (9-16); Calcium 9.4 mg/dL (8.4-10.2); Carbon Dioxide 27 mmol/L (22-29); Chloride 107 mmol/L (96-108); Cholesterol 133 mg/dL (<200); Estimated Glomerular Filt Rate > 60; Glucose Fasting 116 mg/dL (60-99); HDL Cholesterol 55 mg/dL (>40); LDL Cholesterol Calculated 61 mg/dL (<100); Potassium 4.3 mmol/L (3.3-5.1); Sodium 143 mmol/L (135-145); Total Protein 8.4 g/dL (6.5-8.0); Triglycerides 87 mg/dL (<150)
== END 2024-04-13 10:06 | disposition home or self-care (01) ==
LOC: HO.LAB 10:05
PROVIDERS: PCP Internal Medicine; Visit Provider Internal Medicine
DX: I10 Essential (primary) hypertension (principal); E78.5 Hyperlipidemia, unspecified; E11.9 Type 2 diabetes mellitus without complications
CPT/HCPCS: 36415; 80053; 80061; 82043; 82570; 83036

== ENCOUNTER 2024-04-17 12:37 | Outpatient (AMB) | payer OTHER, SELFPAY ==
--- NOTE | 2024-04-17 13:19 | MHC.PC.OV ---
Vital Signs 04/17/24 13:20 Height 6 ft 2 in Weight 286 lb BMI 36.7 BP 120/68 Blood Pressure Location Lt brachial Position Sitting Pulse 83 Pulse Source Pulse Oximeter Temp 97.9 F Temp Source Oral Pulse Oximetry (%) 97 Oxygen Delivery Method Room Air Intake Visit Reasons: Annual PE Intake Note: Pt is here today for PE. Allergies No Known Allergies [No Known Allergies*] Allergy (Verified 04/17/24 13:20) Medication List - Last Reconciled 04/17/24 by Nighat Parson MD aspirin 81 mg PO DAILY irbesartan 300 mg PO DAILY metformin 850 mg PO BID metoprolol tartrate 50 mg PO DAILY rosuvastatin (Crestor) 20 mg PO DAILY Tobacco use date assessed: 04/17/24 Dental Screening Dental Screen Date: 04/17/24 Did you have a dental visit in the last 12 months?: Yes Did you have a dental problem in the last 6 months where you did not have access to dental care?: No Was dental information given to patient?: Patient has dentist HPI Annual PE HPI Details Patient presents for physical. He complains of bilateral thumb, index and middle finger numbness, tingling sensation and pain worse at night waking him up. 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 [facility] Medical History DM type 2 (diabetes mellitus, type 2) Sciatica Annual physical exam Hyperlipemia Hyperglycemia DJD (degenerative joint disease), lumbar Microscopic hematuria BPH (benign prostatic hyperplasia) Osteoarthritis HTN (hypertension) Surgical History H/O colonoscopy History of arthroscopic knee surgery Family History Father No problems noted. Mother No problems noted. Social History Housing: House Alcohol intake: current Alcohol intake frequency: a few times a month Patient Tobacco Use Status: Former Tobacco user Years Smoked: 38 yrs e-Cigarette/Vaping Use: Never Used service: No Current occupational status: employed Cognitive needs: No Hearing needs: No Vision needs: Yes Questionnaire PHQ-9 Over the last 2 weeks, how often have you been bothered by any of the following problems? 1. Little interest or pleasure in doing things: not at all 2. Feeling down, depressed, or hopeless: not at all 3. Trouble falling or staying asleep, or sleeping too much: not at all 4. Feeling tired or having little energy: not at all 5. Poor appetite or overeating: not at all 6. Feeling bad about yourself - or that you are a failure or have let yourself or your family down: not at all 7. Trouble concentrating on things, such as reading the newspaper or watching television: not at all 8. Moving or speaking so slowly that other people could have noticed. Or the opposite - being so fidgety or restless that you have been moving around a lot more than usual: not at all 9. Thoughts that you would be better off or of hurting yourself in some way: not at all Total score: 0 Depression Screening Interpretation: Negative Depression Screening Done: Yes 19407 - PHQ-9 Billing: Yes Source: Developed by Drs. Cristino Paz, Camille Vasquez, Andrade Hicks and colleagues, with an educational flores from [employer]. Thrive Questionnaire Date Thrive assessed: 04/17/24 I am a: Patient What is your living situation today?: I have a steady place to live Within the past 12 months, did the food you bought not last and you didn't have the money to get more?: Never true Within the past 12 months, did you worry whether your food would run out before you got money to buy more?: Never true Do you have trouble paying for medicines?: No Do you have trouble getting transportation to medical appointments?: No Do you have trouble paying your heating and electricity bill?: No Do you have trouble taking care of your child, family member or friend?: No Do you have trouble with day-to-day activities such as bathing, preparing meals, shopping, managing finances, etc.?: No Are you currently unemployed and looking for a job?: No Are you interested in more education?: No THRIVE Score: 0 AUDIT C Alcohol Use Questionnaire (AUDIT-C) 1. How often do you have a drink containing alcohol?: Monthly or less 2. How many drinks containing alcohol do you have on a typical day when you are drinking?: 1 or 2 3. How often do you have six or more drinks on one occasion?: Never Total Score: 1 LONG-7 AMB Questionnaire LONG-7 Date LONG - 7 assessed: 04/17/24 Feeling nervous, anxious, or on edge: 0 = Not at all Not being able to stop or control worryin = Not at all Worrying too much about different things: 0 = Not at all Trouble relaxin = Not at all Being so restless that it is hard to sit still: 0 = Not at all Becoming easily annoyed or irritable: 0 = Not at all Feeling afraid as if something awful might happen: 0 = Not at all Total LONG-7 score (0-4 normal; 5-9 mild; 10-14 moderate; 15-21 severe): 0 Source: Developed by Drs. Cristino Paz, Camille Vasquez, Andrade Hicks and colleagues, with an educational flores from [employer]. LONG-7 Assessment Billing LONG-7 Assessment Tool: LONG-7 Assessment 85097 Review of Systems Const All systems reviewed & are unremarkable except as noted in HPI and below Eyes Reports no additional complaints ENT Reports no additional complaints Card Reports no additional complaints Resp Reports no additional complaints GI Reports no additional complaints Reports no additional complaints Physical exam (Primary Care) Vital Signs: Last Vital Signs Temp 97.9 F 04/17/24 13:20 Pulse 83 04/17/24 13:20 BP 120/68 04/17/24 13:20 Pulse Ox 97 04/17/24 13:20 Oxygen Delivery Method Room Air 04/17/24 13:20 BMI result Body Mass Index 36.7 Tobacco/Smoking Status: Tobacco use Status Tobacco use date assessed 04/17/24 04/17/24 13:21 Patient Tobacco Use Status Former Tobacco user 04/17/24 13:21 e-Cigarette/Vaping Use Never Used 04/17/24 13:21 PHQ-9: PHQ-9 Score PHQ-9: Total score 0 04/17/24 13:21 Depression Screening Interpretation: Negative Thrive Assessment: Date of Thrive Assessment Date Thrive assessed 04/17/24 04/17/24 13:21 Const General: no acute distress HENMT Head: Yes normal to inspection Mouth: Normal oral and palatal mucosa present Neck Neck: Yes no lymphadenopathy and Yes supple Resp Effort & Inspection: normal respiratory effort Auscultation: clear to auscultation bilaterally Cardio Rhythm: regular rhythm Heart sounds: S1 normal heart sound present and S2 normal heart sound present GI Inspection: Yes normal to inspection Palpation (GI): Soft to palpation Percussion: Yes normal to percussion Auscultation: normal bowel sounds Neuro Motor exam (neuro): 5/5 motor strength present throughout Extrem Right upper extremity: wrist (both) Details: Tinel's negative and Phalen's negative Coding Level of Care Code Est Pt Prev Care 40-64y(79069) Diagnoses DM type 2 (diabetes mellitus, type 2) E11.9 HTN (hypertension) I10 Annual physical exam Z00.00 Hyperlipemia E78.5 Carpal tunnel syndrome on both sides G56.03 Additional Codes LONG-7 Assessment Billing - LONG-7 Assessment Tool: LONG-7 Assessment 86962 ([id number]) PHQ-9 - 14135 - PHQ-9 Billing: Yes ([id number]) Assessment & Plan Assessment & Plan (1) DM type 2 (diabetes mellitus, type 2): Comment: Not interested in trying GLP 1 agonist Code(s): E11.9 - Type 2 diabetes mellitus without complications Category: Medical Plan: A1c is 6.4, ADA diet increase exercise weight loss discussed with the patient continue metformin follow-up in 6 months (2) HTN (hypertension): Code(s): I10 - Essential (primary) hypertension Category: Medical Plan: Continue current medications (3) Annual physical exam: Code(s): Z00.00 - Encounter for general adult medical examination without abnormal findings Category: Medical Plan: Well-balanced diet regular physical activity discussed with the patient. (4) Hyperlipemia: Code(s): E78.5 - Hyperlipidemia, unspecified Category: Medical Plan: Continue statin (5) Carpal tunnel syndrome on both sides: Code(s): G56.03 - Carpal tunnel syndrome, bilateral upper limbs Category: Medical Plan: Patient will try wrist braces and if the symptoms persist EMG will be obtained Orders: Orders Complete Blood Count Auto Diff 6 Months E11.9 - Type 2 diabetes mellitus without complications, E78.5 - Hyperlipidemia, unspecified, Z00.00 - Encounter for general adult medical examination without abnormal findings Microalbumin, Random (w Creat) 6 Months E11.9 - Type 2 diabetes mellitus without complications, E78.5 - Hyperlipidemia, unspecified, Z00.00 - Encounter for general adult medical examination without abnormal findings UA w Microscopic 6 Months E11.9 - Type 2 diabetes mellitus without complications, E78.5 - Hyperlipidemia, unspecified, Z00.00 - Encounter for general adult medical examination without abnormal findings Comprehensive [place]. Panel Fast 6 Months E11.9 - Type 2 diabetes mellitus without complications, E78.5 - Hyperlipidemia, unspecified, Z00.00 - Encounter for general adult medical examination without abnormal findings Lipid Panel 6 Months E11.9 - Type 2 diabetes mellitus without complications, E78.5 - Hyperlipidemia, unspecified, Z00.00 - Encounter for general adult medical examination without abnormal findings Hemoglobin A1c 6 Months E11.9 - Type 2 diabetes mellitus without complications, E78.5 - Hyperlipidemia, unspecified, Z00.00 - Encounter for general adult medical examination without abnormal findings
[2024-04-17 13:20] VITALS: BP 120/68; PULSE 83; TEMP 36.6; O2SAT 97; BMI 36.7
== END 2024-04-17 14:03 | disposition home or self-care (01) ==
PROVIDERS: PCP Internal Medicine; Visit Provider Internal Medicine
DX: E11.9 Type 2 diabetes mellitus without complications (principal); I10 Essential (primary) hypertension; Z00.00 Encounter for general adult medical examination without abnormal findings; E78.5 Hyperlipidemia, unspecified; G56.03 Carpal tunnel syndrome, bilateral upper limbs

== ENCOUNTER → 2024-04-17 12:37 | Outpatient (BNVA) | payer OTHER, SELFPAY | PROVIDERS: PCP Internal Medicine; Visit Provider Internal Medicine | DX: Z00.00 Encounter for general adult medical examination without abnormal findings (principal); E11.9 Type 2 diabetes mellitus without complications; I10 Essential (primary) hypertension; E78.5 Hyperlipidemia, unspecified; G56.03 Carpal tunnel syndrome, bilateral upper limbs; Z79.84 Long term (current) use of oral hypoglycemic drugs; Z79.899 Other long term (current) drug therapy | CPT/HCPCS: 96127 ==

== ENCOUNTER 2024-10-05 07:26 | Outpatient (REF) | payer OTHER, SELFPAY ==
[2024-10-05 07:40] LABS: MANUAL DIFF FLAG NO
[2024-10-05 07:49] LABS: Hematocrit 41.7 % (42.0-52.0); Hemoglobin 14.7 g/dl (14.0-18.0); Imm Gran Abs Auto 0.01 X10*3/uL (0.00-0.03); Imm Gran Pct Auto 0.2 % (0.0-0.4); Lymphocytes Absolute Auto 2.5 X10*3/uL (1.2-4.9); Mean Corpuscular HGB Conc 35.3 g/dl (31.0-36.0); Mean Corpuscular Hemoglobin 31.1 pg (27.0-33.0); Mean Corpuscular Volume 88.2 fL (80.0-98.0); NRBC Abs Auto 0.000 X10*3/uL (0.0-0.012); NRBC Pct Auto 0.0 /100WBC (0.0-0.2); Platelet Count 193 X10*3/uL (160-400); Red Blood Count 4.73 X10*6/uL (4.60-5.80); White Blood Count 6.2 X10*3/uL (4.8-10.8)
[2024-10-05 07:55] LABS: Appearance Urine Clear; Glucose Urine UA Negative (Negative); PH 5.5 (5.0-9.0); Specific Gravity - Urine 1.020 (1.005-1.025)
[2024-10-05 08:12] LABS: Hemoglobin A1C 185.0853 umol/L; Total Hemoglobin (HGBA1C) 3818.3291 umol/L
[2024-10-05 08:25] LABS: Microalbum/Creatinine Ratio Ur 6.9 ug/mg cr (<30)
[2024-10-05 08:26] LABS: Alanine Aminotransferase 26 U/L (0-40); Albumin Level 4.5 g/dL (3.5-5.0); Alkaline Phosphatase 56 U/L (39-117); Anion Gap 20 (12-20); Aspartate Amino Transferase 43 U/L (5-37); Blood Urea Nitrogen 13 mg/dL (9-16); Calcium 8.9 mg/dL (8.4-10.2); Carbon Dioxide 23 mmol/L (22-29); Chloride 101 mmol/L (96-108); Cholesterol 132 mg/dL (<200); Estimated Glomerular Filt Rate > 60; HDL Cholesterol 48 mg/dL (>40); Potassium 3.9 mmol/L (3.3-5.1); Sodium 140 mmol/L (135-145); Total Protein 7.7 g/dL (6.5-8.0); Triglycerides 143 mg/dL (<150)
== END 2024-10-05 07:27 | disposition home or self-care (01) ==
LOC: HO.LAB 07:26
PROVIDERS: PCP Internal Medicine; Visit Provider Internal Medicine
DX: Z00.00 Encounter for general adult medical examination without abnormal findings (principal); E11.9 Type 2 diabetes mellitus without complications; E78.5 Hyperlipidemia, unspecified
CPT/HCPCS: 36415; 80053; 80061; 81001; 82043; 82570; 83036; 85025

== ENCOUNTER 2024-10-14 10:46 | Outpatient (AMB) | payer OTHER, SELFPAY ==
[2024-10-14 10:55] VITALS: BP 133/72; PULSE 70; O2SAT 98; BMI 37.0
--- NOTE | 2024-10-14 10:55 | MHC.PC.OV ---
Vital Signs 10/14/24 10:55 Height 6 ft 2 in Weight 288 lb BMI 37.0 BP 133/72 Blood Pressure Location Lt brachial Position Sitting Pulse 70 Pulse Source Pulse Oximeter Pulse Oximetry (%) 98 Intake Visit Reasons: 6m follow up Allergies No Known Allergies (No Known Allergies*) Allergy (Verified 10/14/24 10:55) Medication List - Last Reconciled 10/14/24 by Nighat Parson MD aspirin 81 mg PO DAILY irbesartan 300 mg PO DAILY metformin 850 mg PO BID metoprolol tartrate 50 mg PO DAILY rosuvastatin (Crestor) 20 mg PO DAILY Tobacco use date assessed: 04/17/24 Fall risk assessment: No Falls in past year Last assessed Fall Risk: 10/14/24 Dental Screening Dental Screen Date: 04/17/24 HPI 6m follow up HPI Details Pt presents for f/u HTN, hyperlipid, DM 2. stable on meds. PFSH Medical History DM type 2 (diabetes mellitus, type 2) Sciatica Annual physical exam Hyperlipemia Hyperglycemia DJD (degenerative joint disease), lumbar Microscopic hematuria BPH (benign prostatic hyperplasia) Osteoarthritis HTN (hypertension) Surgical History H/O colonoscopy History of arthroscopic knee surgery Family History Father No problems noted. Mother No problems noted. Social History Housing: House Alcohol intake: current Alcohol intake frequency: a few times a month Patient Tobacco Use Status: Former Tobacco user Years Smoked: 38 yrs e-Cigarette/Vaping Use: Never Used service: No Current occupational status: employed Cognitive needs: No Hearing needs: No Vision needs: Yes Questionnaire Thrive Questionnaire Date Thrive assessed: 04/10/24 I am a: Patient What is your living situation today?: I have a steady place to live Within the past 12 months, did the food you bought not last and you didn't have the money to get more?: Never true Within the past 12 months, did you worry whether your food would run out before you got money to buy more?: Never true Do you have trouble paying for medicines?: No Do you have trouble getting transportation to medical appointments?: No Do you have trouble paying your heating and electricity bill?: No Do you have trouble taking care of your child, family member or friend?: No Do you have trouble with day-to-day activities such as bathing, preparing meals, shopping, managing finances, etc.?: No Are you currently unemployed and looking for a job?: No Are you interested in more education?: No Please select the resources that you would like help with: None Currently or been in a relationship where the following occur: No concerns reported THRIVE Score: 0 LONG-7 AMB Questionnaire LONG-7 Date LONG - 7 assessed: 04/17/24 Source: Developed by Drs. Cristino Paz, Camille Vasquez, Andrdae Hicks and colleagues, with an educational flores from [employer]. Review of Systems Const All systems reviewed & are unremarkable except as noted in HPI and below ENT Reports no additional complaints Card Reports no additional complaints Resp Reports no additional complaints GI Reports no additional complaints Reports no additional complaints Physical exam (Primary Care) Vital Signs: Last Vital Signs Pulse 70 10/14/24 10:55 BP 133/72 10/14/24 10:55 Pulse Ox 98 10/14/24 10:55 BMI result Body Mass Index 37.0 Tobacco/Smoking Status: Tobacco use Status Tobacco use date assessed 04/17/24 10/14/24 10:56 Patient Tobacco Use Status Former Tobacco user 10/14/24 10:56 e-Cigarette/Vaping Use Never Used 10/14/24 10:56 Thrive Assessment: Date of Thrive Assessment Date Thrive assessed 04/10/24 10/14/24 10:56 Currently or been in a relationship where the following occur: No concerns reported Const General: no acute distress HENMT Head: Yes normal to inspection General nose exam: Normal external nose present Face and sinus: Yes normal facial exam Mouth: Normal oral and palatal mucosa present Throat: Yes posterior oropharynx normal Eyes General: appearance normal, both eyes and all related structures Resp Effort & Inspection: normal respiratory effort Auscultation: clear to auscultation bilaterally Cardio Rhythm: regular rhythm Heart sounds: S1 normal heart sound present and S2 normal heart sound present GI Inspection: Yes normal to inspection Palpation (GI): Soft to palpation Percussion: Yes normal to percussion Auscultation: normal bowel sounds Coding Level of Care Code Est Pt Level 4 (16027) Diagnoses HTN (hypertension) I10 Hyperlipemia E78.5 DM type 2 (diabetes mellitus, type 2) E11.9 Assessment & Plan Assessment & Plan (1) HTN (hypertension): Code(s): I10 - Essential (primary) hypertension Category: Medical Plan: Continue current medications (2) Hyperlipemia: Code(s): E78.5 - Hyperlipidemia, unspecified Category: Medical Plan: Continue statin (3) DM type 2 (diabetes mellitus, type 2): Comment: Not interested in trying GLP 1 agonist Code(s): E11.9 - Type 2 diabetes mellitus without complications Category: Medical Plan: A1c is 6.8, ADA diet increase physical activity weight loss discussed with the patient. He has not been compliant taking metformin 850 twice a day. Metformin will be changed to metformin ER 750 2 tablets a day, he will follow-up in 6 months with a fasting labs before Orders: Orders Complete Blood Count Auto Diff 6 Months E11.9 - Type 2 diabetes mellitus without complications, E78.5 - Hyperlipidemia, unspecified, I10 - Essential (primary) hypertension Hemoglobin A1c 6 Months E11.9 - Type 2 diabetes mellitus without complications, E78.5 - Hyperlipidemia, unspecified, I10 - Essential (primary) hypertension PSA,Total (Free>4and<10) 6 Months E11.9 - Type 2 diabetes mellitus without complications, E78.5 - Hyperlipidemia, unspecified, I10 - Essential (primary) hypertension Comprehensive [place]. Panel Fast 6 Months E11.9 - Type 2 diabetes mellitus without complications, E78.5 - Hyperlipidemia, unspecified, I10 - Essential (primary) hypertension Lipid Panel 6 Months E11.9 - Type 2 diabetes mellitus without complications, E78.5 - Hyperlipidemia, unspecified, I10 - Essential (primary) hypertension Microalbumin, Random (w Creat) 6 Months E11.9 - Type 2 diabetes mellitus without complications, E78.5 - Hyperlipidemia, unspecified, I10 - Essential (primary) hypertension Medications: New metformin ER 1,500 mg (2 x 750 mg) PO DAILY 180 tabs 3RF Refilled irbesartan 300 mg PO DAILY 90 tabs 3RF rosuvastatin (Crestor) 20 mg PO DAILY 90 tabs 3RF metoprolol tartrate 50 mg PO DAILY 90 tabs 3RF Discontinued metformin Discontinued Reason: Doctor's Order 850 mg PO BID 180 tabs 3RF
--- OUTSIDE RECORDS SUMMARY | 2024-10-14 12:01 | XMS_ITS | Clinical Summary ---
Author Organization [facility] Address [address] [place] [address] [place], [place] [id number] Phone Care Team Providers Care General House Worker Name Role Phone Nighat Parson MD Primary Care Provider [phone] Allergies No known active allergies Medications metoprolol tartrate (LOPRESSOR) 50 MG tablet Take 50 mg by mouth daily. Active metFORMIN (GLUCOPHAGE) 850 MG tablet Take 850 mg by mouth 2 (two) times a day with meals. Active irbesartan (AVAPRO) 300 MG tablet Take 300 mg by mouth daily. Active simvastatin (ZOCOR) 40 MG tablet Take 40 mg by mouth nightly at bedtime. Active naproxen (NAPROSYN) 500 MG tablet Take 1 tablet (500 mg total) by mouth 2 (two) times a day for 3 days. Then twice daily as needed for pain, inflammation 20 tablet 2 Active aspirin 81 mg chewable tablet Take 81 mg by mouth daily. Active Active Problems No known active problems Social History Tobacco Use Types Packs/Day Years Used Date Smoking Tobacco: Former Cigarettes Smokeless Tobacco: Never Tobacco Cessation:Counseling Given: Not Answered Education Answer Date Recorded Are you interested [...] on file Sexual Orientation Not on file Last Filed Vital Signs Vital Sign Reading Time Taken Comments Blood Pressure 150/82 02/22/2024 9:48 AM EST Pulse 75 02/22/2024 9:48 AM EST Temperature 36.7 C (98.1 F) 02/22/2024 9:48 AM EST Respiratory Rate 18 02/22/2024 9:48 AM EST Oxygen Saturation 96% 02/22/2024 9:48 AM EST Inhaled Oxygen Concentration - - Weight 131.5 kg (290 lb) 09/04/2021 9:37 AM EDT Height 188 cm (6' 2 ) 09/04/2021 9:37 AM EDT Body Mass Index 37.23 09/04/2021 9:37 AM EDT Plan of Treatment Health Maintenance Due Date Last Done Comments Adult Td,Tdap Booster 1960 CREATININE LEVEL 1960 LIPID PANEL 1960 POTASSIUM LEVEL 1960 DEPRESSION SCREENING 1972 SMOKING Hx and SMOKELESS TOBACCO SCREENING 1973 HEPATITIS C SCREENING 1978 HIV ONE-TIME SCREENING (18-6 5 YEARS) 1978 COLOGUARD 2005 COLONOSCOPY 2005 COLORECTAL CANCER SCREENING 2005 FIT TEST 2005 FOBT 2005 SIGMOIDOSCOPY 2005 VIRTUAL COLONOSCOPY 2005 PNEUMOCOCCAL VACCINES (50+ years) (1 of 1 - PCV) 2010 ZOSTER VACCINES (1 of 2) 2010 COVID-19 VACCINE (3 - 2023-2 5 season) 2023 02/05/2021, 01/15/2021 RSV VACCINE (1 - 1-dose 75+ series) 05/09/2035 HEPATITIS A VACCINES Aged Out No long er eligible based on patient's age to complete this topic HIB VACCINES Aged Out No longer eligi ble based on patient's age to complete this topic MENINGOCOCCAL VACCINES (ACWY) Aged Out No longer eligible based on patient's age to complete this topic MENINGOCOCCAL VACCINES (B) Aged Out N o longer eligible based on patient's age to complete this topic Medical Devices Not on file Insurance HMO O HMO HMO O O O HMO O Care Teams General House Worker Relationship Specialty Start Date End Date Nighat Parson MD [address] [place] [id number] PCP - General Internal Medicine 09/04/21 Additional Source Comments The information contained in this document represents components of the legal health record. It is not the complete legal health record.[facility]
== END 2024-10-14 11:20 | disposition home or self-care (01) ==
LOC: HO.HMCC 10:47
PROVIDERS: PCP Internal Medicine; Visit Provider Internal Medicine
DX: I10 Essential (primary) hypertension (principal); E78.5 Hyperlipidemia, unspecified; E11.9 Type 2 diabetes mellitus without complications

== ENCOUNTER 2025-01-25 07:26 | Outpatient (REF) | payer OTHER, SELFPAY ==
--- OUTSIDE RECORDS SUMMARY | 2024-02-22 09:56 | XMS_ITS | Encounter Summary ---
Author Organization [facility] Address [address] [facility] [address] [place] [id number] Phone Care Team Providers Care Water Plant Pump Operator Name Role Phone Nighat Parson MD Primary Care Provider [phone] Encounter Details Date Type Department Care Team ([facility] st Contact Info) Description 02/22/2024 9:56 AM EST Hospital Encounter [facility] [address] [place] [id number] Ashli Stone, CREAM CHEESE MAKER [address] [place] [address] [email or web address] Social History Tobacco Use Types Packs/Day Years Used Date Smoking Tobacco: Former Cigarettes Smokeless Tobacco: Never Education Answer Date Recorded Are you interested in more education? Not on te e 06/17/2022 Are you concerned about learning? Not on file 06/17/2022 No 06/17/2022 No 06/17/2022 Digital Access Answer Date Recorded No 07/16/2022 No 07/16/2022 Reliable internet access at home? Not on file 07/16/2022 Device with a working camera? Not on file Sex and Gender Information Value Date Recorded Sex Assigned at Not on file Legal Sex Male 9:47 PM EDT Gender Identity Not on file Sexual Orientation Not on file documented as of this encounter Plan of Treatment Not on file documented as of this encounter Procedures Procedure Name Priority Date/Time Associated Diagnosis Comments CHG X-RAY ANKLE 3+ VW Urgent/patient waiting 02/22/2024 10:04 AM EST Acute left ankle pain documented in this encounter Results * XR Ankle (Left) (02/22/2024 10:04 AM EST) Anatomical Region Laterality Modality Ankle Left Computed Radiogr aphy 02/22/2024 10:4 0 AM EST Impressions 02/22/2024 10:45 AM EST Left ankle: No displaced fracture or dislocation. The ankle mortise and talar dome are intact. Soft tissue swelling greatest over the lateral malleolus. Left foot: No displaced fracture or dislocation. No significant soft tissue swelling. Plantar calcaneal spur. Os naviculare. Narrative 02/22/2024 10:45 AM EST XR FOOT (LEFT), XR ANKLE (LEFT) Referring clinician's provided indication for this examination in [facility]: Pain; Trauma Procedure Note Gigi Rutledge MD, PhD - 02/22/2024 XR FOOT (LEFT), XR ANKLE (LEFT) Referring clinician's provided indication for this examination in [facility]:Pain; Trauma IMPRESSION: Left ankle: No displaced fracture or dislocation. The ankle mortise andtalar dome are intact. Soft tissue swelling greatest over the lateralmalleolus. Left foot: No displaced fracture or dislocation. No significant softtissue swelling. Plantar calcaneal spur. Os naviculare. Ashli Stone CREAM CHEESE MAKER IMG XR LOWER EXTREMITY Final Result documented in this encounter Visit Diagnoses Not on filedocumented in this encounter Care Teams Water Plant Pump Operator Relationship Specialty Start Date End Date Nighat Parson MD [facility] [address] PCP - General Internal Medicine 09/04/21 documented as of this encounter Additional Source Comments The information contained in this document represents components of the legal health record. It is not the complete legal health record.[facility]
--- OUTSIDE RECORDS SUMMARY | 2024-02-22 09:56 | XMS_ITS | Encounter Summary ---
Author Organization [facility] Address [address] [facility] [address] [place] [id number] Phone Care Team Providers Care Relay Record Clerk Name Role Phone Nighat Parson MD Primary Care Provider [phone] Encounter Details Date Type Department Care Team ([facility] st Contact Info) Description 02/22/2024 9:56 AM EST Hospital Encounter [facility] [address] [place] [id number] Ashli Stone, AMPOULE SEALER [address] [place] [address] [email or web address] Social History Tobacco Use Types Packs/Day Years [...] Priority Date/Time Associated Diagnosis Comments CHG X-RAY FOOT 3+ VW Urgent/patient waiting 02/22/2024 10:03 AM EST Acute left ankle pain documented in this encounter Results * XR Foot (Left) (02/22/2024 10:03 AM EST) Anatomical Region Laterality Modality Foot Left Computed Radiogr aphy 02/22/2024 10:4 0 [...] clinician's provided indication for this examination in [facility]: Pain; Trauma Procedure Note Gigi Rutledge MD, PhD - 02/22/2024 XR FOOT (LEFT), XR ANKLE (LEFT) Referring clinician's provided indication for this examination in [facility]:Pain; Trauma IMPRESSION: Left ankle: No displaced fracture or dislocation. The ankle mortise andtalar dome are intact. Soft tissue swelling greatest over the lateralmalleolus. Left foot: No displaced fracture or dislocation. No significant softtissue swelling. Plantar calcaneal spur. Os naviculare. Ashli Stone AMPOULE SEALER IMG XR LOWER EXTREMITY Final Result documented in this encounter Visit Diagnoses Not on filedocumented in this encounter Care Teams Relay Record Clerk Relationship Specialty Start Date End Date Nighat Parson MD [facility] [place] [address] PCP - General Internal Medicine 09/04/21 documented as of this encounter Additional Source Comments The information contained in this document represents components of the legal health record. It is not the complete legal health record.[facility]
--- OUTSIDE RECORDS SUMMARY | 2025-01-25 07:29 | XMS_ITS | Clinical Summary ---
Author Organization [facility] Address [address] [place] [address] [place], [place] [id number] Phone Care Team Providers Care Rolled Gold Plater Name Role Phone Nighat Parson MD Primary Care Provider [phone] Allergies No known active allergies Medications metoprolol [...] 2010 ZOSTER VACCINES (1 of 2) 2010 INFLUENZA VACCINE (#1) 2024 COVID-19 VACCINE (3 - 2024-2 6 season) 2024 02/05/2021, 01/15/2021 RSV VACCINE (1 - 1-dose [...] topic Medical Devices Not on file Insurance O O O HMO HMO HMO HMO HMO O Care Teams Rolled Gold Plater Relationship Specialty Start Date End Date Nighat Parson MD [address] [place] [address] PCP - General Internal Medicine 09/04/21 Additional Source Comments The information contained in this document represents components of the legal health record. It is not the complete legal health record.[facility]
[2025-01-25 10:27] LABS: Prostate Specific Antigen 1.22 ng/mL (<0.05-4.0)
== END 2025-01-25 07:27 | disposition home or self-care (01) ==
LOC: HO.LAB 07:26
PROVIDERS: PCP Internal Medicine; Visit Provider Urology
DX: N40.0 Benign prostatic hyperplasia without lower urinary tract symptoms (principal); Z12.5 Encounter for screening for malignant neoplasm of prostate
CPT/HCPCS: 36415; 84153